=== PATIENT | female | born 1975 | race Two or more races ===

== ENCOUNTER → 2019-07-24 | Outpatient (CLI) | payer OTHER ==
[2019-07-24 13:58] LABS: BASO # 0.1 x10^3/uL (0.0-0.2); BASO % 1 % (0-3); BILIRUBIN,URINE NEGATIVE (NEG); CLARITY,URINE CLEAR; COLOR,URINE YELLOW; EOS # 0.1 x10^3/uL (0.0-0.7); EOS % 2 % (0-3); HEMATOCRIT 38.4 % (36.0-47.0); HEMOGLOBIN 12.8 g/dL (12.0-15.5); LYMPH # 1.8 x10^3/uL (1.0-4.8); LYMPH % 24 % (24-48); MEAN CORPUSCULAR HEMOGLOBIN 28 pg (25-35); MEAN CORPUSCULAR HGB CONC 33 g/dL (31-37); MEAN CORPUSCULAR VOLUME 85 fL (79-100); MONO # 0.7 x10^3/uL (0.0-1.1); MONO % 9 % (0-9); NEUT # 4.7 x10^3/uL (1.8-7.7); NEUT % 64 % (31-73); NITRITE,URINE NEGATIVE (NEG); PH,URINE 6.5; PLATELET COUNT 255 x10^3/uL (140-400); PROTEIN,URINE NEGATIVE (NEG-TRACE); RED BLOOD COUNT 4.51 x10^6/uL (3.50-5.40); RED CELL DISTRIBUTION WIDTH 14.6 % (11.5-14.5); UROBILINOGEN,URINE 0.2 mg/dL (0.2 mg/dL); WHITE BLOOD COUNT 7.3 x10^3/uL (4.0-11.0)
[2019-07-24 14:11] LABS: BACTERIA,URINE FEW /HPF (0-FEW); RBC,URINE 0 /HPF (0-2); SQUAMOUS EPITHELIAL CELL,UR MOD /LPF; WBC,URINE RARE /HPF (0-4)
[2019-07-24 14:21] LABS: ALBUMIN 3.7 g/dL (3.4-5.0); CALCIUM 8.8 mg/dL (8.5-10.1); CREATININE 0.8 mg/dL (0.6-1.0); GFR 77.2; POTASSIUM 4.1 mmol/L (3.5-5.1); TOTAL BILIRUBIN 0.3 mg/dL (0.2-1.0); TOTAL PROTEIN 7.3 g/dL (6.4-8.2)
--- NOTE | 2019-07-27 07:30 | NUR ---
Surgery pretesting lab results faxed to Dr. Anderson's office, confirmation received.
== END | disposition home or self-care (01) ==
LOC: SURGPAT 13:01
PROVIDERS: ATTEND Obstetrics & Gynecology
DX: Z01.818 Encounter for other preprocedural examination (principal); Z88.5 Allergy status to narcotic agent
CPT/HCPCS: 36415; 80053; 81001; 85025; 87086

== ENCOUNTER 2019-08-05 06:06 | Observation (INO) | payer OTHER ==
[~2019-08-05] VITALS: Ht 160 cm; Wt 62.0 kg
[2019-08-05] VITALS (10 sets, daily range): BP systolic 89–105; BP diastolic 48–63
[~2019-08-05 06:06] MED LIST: ceFAZolin SODIUM IV Push 1 GM VIAL. IVP ONE
[2019-08-05] MEDS ORDERED: PROPOFOL 20 ML IV ONE (06:47)
[2019-08-05] MEDS ORDERED: DEXAMETHASONE SOD PHOS 4 MG/ML VIAL ONE (06:47)
[2019-08-05] MEDS ORDERED: fentaNYL PF VIAL 100 MCG/2 ML VIAL ONE ×3 (06:47→09:28)
[2019-08-05] MEDS ORDERED: LIDOCAINE 2% PF 5 ML VIAL. ONE (06:47)
[2019-08-05] MEDS ORDERED: ROCURONIUM 50 MG/5 ML VIAL. ONE (06:47)
[2019-08-05] MEDS ORDERED: ONDANSETRON PF 4 MG/2 ML VIAL. ONE (06:47)
[2019-08-05] MEDS ORDERED: ESTROGENS, CONJ VAGINAL CREAM 30GM TUBE. ONE (07:00)
[2019-08-05] MEDS ORDERED: INDIGOTINDISULFONATE SODIUM 40 MG/5 ML AMPUL. ONE (07:00)
[2019-08-05] MEDS ORDERED: PROCHLORPERAZINE 10 MG/2 ML VIAL. IV PRN (07:00)
[2019-08-05] MEDS ORDERED: fentaNYL PF VIAL 100 MCG/2 ML VIAL IV PRN ×2 (07:00)
[2019-08-05] MEDS ORDERED: IV RINGERS,LACTATED 1000ML 1,000 ML IV SCH (07:00)
[2019-08-05] MEDS ORDERED: BUPIVACAINE-EPI 0.25%-1:200000 MPF 30 ML VIAL. ONE (07:00)
[2019-08-05] MEDS ORDERED: ONDANSETRON PF 4 MG/2 ML VIAL. IV PRN ×2 (07:00→09:45)
[2019-08-05] MEDS ORDERED: MIDAZOLAM HCL/PF 2 MG/2 ML VIAL. ONE (07:28)
[2019-08-05] MEDS ORDERED: KETOROLAC 30 MG/ML VIAL. ONE (08:40)
[2019-08-05] MEDS ORDERED: SEVOFLURANE 61 TO 120 MINUTES. IH ONE (08:40)
[2019-08-05] MEDS ORDERED: NEOSTIGMINE METHYLSULFATE 5 MG/5 ML SYRINGE. ONE (08:44)
[2019-08-05] MEDS ORDERED: GLYCOPYRROLATE 1 MG/5 ML VIAL. ONE (08:44)
[2019-08-05] MEDS ORDERED: PROCHLORPERAZINE 10 MG/2 ML VIAL. ONE (09:28)
--- NOTE | 2019-08-05 09:31 | PDOC ---
BRIEF OPERATIVE NOTE Date: Aug 05, 2019 Pre-Op Diagnosis pelvic pain, endometriosis, dysmenorrhea Post-Op Diagnosis same Procedure Performed LAVH/BSO Surgeon Dr. Anderson Multiple Drum Sander Helper ZAKIA Warren Anesthesiologist Dr. Garza Anesthesia Type: General Blood Loss 50cc IV Fluid 1L Urine Output 100cc clear via hadley Specimens Obtained cervix, uterus, bilateral tubes and ovaries Findings enlarged RV uterus, endometriosis on L US ligament and post uterus, evidence of prior tubal ligation, normal bilateral ovaries mild adhesive disease RUQ (not touched) Complications none Operative Note [id number] PAUL ANDERSON MD Aug 05, 2019 09:31
[2019-08-05] MEDS ORDERED: 0.9 % SODIUM CHLORIDE 10 ML DISP.SYRIN. IV PRN (09:45)
[2019-08-05] MEDS ORDERED: SIMETHICONE 80 MG TAB.CHEW PO PRN (09:45)
[2019-08-05] MEDS ORDERED: CALCIUM CARBONATE 500 MG TAB.CHEW PO PRN (09:45)
[2019-08-05] MEDS ORDERED: ZOLPIDEM 5 MG TABLET. PO PRN (09:45)
[2019-08-05] MEDS ORDERED: LACTULOSE 20 GM/30 ML SOLUTION. PO PRN (09:45)
[2019-08-05] MEDS ORDERED: ESTRADIOL WEEKLY 0.1 MG PATCH. TD SCH (09:45)
[2019-08-05] MEDS ORDERED: MAG HYDROX/ALUMINUM HYD/SIMETH 30 ML ORAL.SUSP PO PRN (09:45)
[2019-08-05] MEDS ORDERED: diphenhydrAMINE HCL 25 MG CAPSULE PO PRN (09:45)
[2019-08-05] MEDS ORDERED: MAGNESIUM HYDROXIDE 2,400 MG/30 ML ORAL.SUSP. PO PRN (09:45)
[2019-08-05] MEDS ORDERED: NALOXONE 0.4 MG/ML VIAL. IV PRN (09:45)
[2019-08-05] MEDS ORDERED: diphenhydrAMINE 50 MG/ML VIAL IV PRN (09:45)
--- NOTE | 2019-08-05 13:32 | OP ---
DATE OF SURGERY: 08/05/2019 PREOPERATIVE DIAGNOSES: Known endometriosis by prior laparoscopy when she had a tubal ligation, pelvic pain and dysmenorrhea. POSTOPERATIVE DIAGNOSES: Known endometriosis by prior laparoscopy when she had a tubal ligation, pelvic pain and dysmenorrhea. PROCEDURE: Laparoscopic-assisted vaginal hysterectomy, bilateral salpingo-oophorectomy. SURGEON: Paul Anderson MD FUGITIVE INVESTIGATOR: ZAKIA Bond ANESTHESIOLOGIST: Jerrell Garza MD ANESTHESIA: General. ESTIMATED BLOOD LOSS: 50 mL. URINE OUTPUT: 100 mL clear via Michele catheter. IV FLUIDS: 1 L of Crystalloid. SPECIMENS: Cervix, uterus, bilateral tubes and ovaries. FINDINGS: Enlarged retroverted uterus, endometriosis on the left uterosacral ligament and posterior uterus, evidence of prior tubal ligation, normal bilateral ovaries and mild adhesive disease in the right upper quadrant that was not touched, but no significant pelvic adhesive disease. COMPLICATIONS: None. DESCRIPTION OF PROCEDURE: This patient was taken to the operating room where general anesthesia was placed. The patient was placed in a dorsal lithotomy position in [facility]. She was put to sleep with general anesthesia by Anesthesia. She was prepped and draped in the normal sterile fashion and a Michele catheter had been inserted under sterile technique. Upon my arrival, a timeout was performed. Once everyone agreed, a bivalve speculum was placed in the patient's vagina. A single-tooth tenaculum was used to grasp the anterior lip of the cervix. A 10 mL of 0.25% Marcaine with epinephrine was used to circumferentially inject around the cervix for both hemodissection and hemostatic purposes later. The Valtchev uterine manipulator was placed through the endocervical os, locked on the single tooth tenaculum and the bivalve speculum was then removed. Top gloves were discarded and changed. Attention was then turned to the abdomen where a small infraumbilical skin incision was made with the scalpel over the existing scar. A curved Jess was used to dissect through the subcuticular layer to the fascia. The 5 mm Visiport was used to directly enter the abdominal cavity. Opening patient pressure was 3 mmHg. Carbon dioxide gas was used to then appropriately insufflate the abdominal cavity to maintain a pressure of 15 mmHg. The patient was placed in Trendelenburg position. Left lower quadrant port was placed after transilluminating the abdominal cavity, finding an area clear of any vasculature, making a small incision with the scalpel and placing the trocar in under direct visualization without difficulty. A 4-5 mL of air was placed in the trocar cuff. The camera was then moved laterally to look at the umbilical port. Once it was clear and in, easily seen, it was also insufflated with 4-5 mL of air in the trocar cuff and then the right lower quadrant port was placed under direct visualization after transilluminating the abdominal wall, finding an area clear of any vasculature, making sure the inside was clear of any adhesions making a small incision and placing it in under direct visualization. It was also inflated with 4-5 mL of air, the trocar cuff. Once this was done, she was in Trendelenburg with all the above findings. The left tube and ovary were elevated. We could see the ureter coursing well in the pelvis peristalsing easily. It was a very prominent. We went high on the ovary well above the level of the ureter, cauterizing and cutting the infundibulopelvic ligament with the LigaSure, going over going through the round ligament as well on this side. This was done on the right side as well, elevating the right tube and ovary, finding the ureter coursing low in the pelvis, watching it peristalse staying high on the IP ligament well above the level of the ureter, cauterizing and cutting with the LigaSure, crossing the right round ligament as well, going back and making the bladder flap sharply pushing the uterus cephalad and then elevating with the [place] and the bladder flap using the monopolar hook on the LigaSure to cauterize and cut that bladder flap sharply and pull it down. Once it was down, the uterine vessels were obtained on the left side and going down and hugging the cervix vertically through the cardinal and broad ligaments to the level of the uterosacral. This was done exactly the same on the right side getting the uterine vessels staying inside that pedicle hugging the cervix and going down to the uterosacral. Once this was done, the uterus was completely free and blanched. All instruments were removed from the abdomen and attention was turned vaginally. The single tooth and Valtchev were removed. A weighted speculum was placed in the patient's vagina. Thyroid Nixon clamps were placed on the anterior and posterior lips of the cervix respectively. A scalpel was used to make a circumferential incision in the cervix. The posterior cul-de-sac was sharply entered easily extended with the Jacques scissors under direct visualization. The posterior cul-de-sac was cleared time-out. A #0 Vicryl stitch was used to secure the posterior peritoneum to the vaginal cuff, was tagged with a curved Jess clamp. The needle was cut and passed off. The short weighted vaginal speculum was removed and replaced with the long weighted Yoli speculum in the posterior cul-de-sac. Once this was done, the end of the plastic anchor was used to gently push up the anterior bladder peritoneum off the cervix and a scalpel was used to gently take this down as well and push it up. I then removed everything, took a 4 x 4 and just gently pushed up and easily entered the anterior cul-de-sac after taking it down sharply. The Ray-Dolores was removed and the curved Phil was easily placed in the anterior cul-de-sac. At this point, curved Ciera clamps x 2 were placed on the patient's left uterosacral ligament where they were doubly clamped with curved Ciera's, cut with curved Jacques scissors and suture ligated x 2 with 0 Vicryl. Second one was taken through the vaginal cuff securing uterosacral ligament to the vaginal cuff, cutting and tagging or once it was tied cutting the needle off and tagging it with a straight Jess clamp and putting it on the outside of the weighted speculum. This was done exactly the same on the patient's right side, double clamping the uterosacrals with curved Ciera's, cutting with curved Jacques scissors, suture ligating x 2 with 0 Vicryl and taking the second one through the vaginal cuff securing uterosacral ligament to the vaginal cuff, tagging it with a straight Jess clamp and cutting and passing the needle off. The remaining pedicle on both sides was delineated with a mixture, the curved right angle clamp and the vaginal LigaSure was used to cauterize and cut the remaining pedicles. The cervix, uterus, bilateral tubes and ovaries were then delivered in total and passed off for permanent pathology. Once this was done, the anterior bladder peritoneum was grasped with a long Allis. The long Yoli speculum was removed and replaced with the short weighted vaginal speculum. A sponge stick was used to examine all the pedicles. On the patient's left side, there was some kind of raw tissue at the uterosacral, so I went ahead and cauterized again, like kind of pulled it out with the pickups and behind it and cauterized with the vaginal LigaSure just to make sure it was hemostatic and it was. There was some slight rundown, but nothing was welling up at all and it looked good, so at this point, 2-0 Vicryl was taken through the anterior bladder peritoneum, left uterosacral ligament, posterior peritoneum and right uterosacral ligament, thus closing the peritoneum in a pursestring like fashion. Once this was done, the right and left uterosacral tags were clipped as well and passed off. The cuff was closed in an anterior to posterior running locked fashion and tied to the posterior cuff tag. Once this was done, the cuff was reexamined. It was completely hemostatic and looked good, so all instruments were removed from the vagina. All sponge, lap and needle counts were correct x 2 by OR personnel before going above. Once this was assured, all gloves were discarded and changed. Attention was then turned back above for a second look where we copiously irrigated. There was absolutely no bleeding seen. The right and left pericolic gutters were clear. There was a weird, like white, it looked almost like a stone seen in the left kind of pericolic gutter that was falling down into the pelvis. This was removed laparoscopically and sent off as a separate specimen, so it looked like a little white stone that was removed laparoscopically from the abdominal cavity and that was actually done at the beginning upon initial entry. We found upon initial entry when she was going in Trendelenburg this kind of white looking stones, so I did remove that laparoscopically and did it even before the hysterectomy but it is passed off for permanent pathology. Once irrigation revealed hemostasis, Tisseel was placed over all the pedicles. Then, the gas was taken out of trocar cuffs. The right and left lower quadrant ports were removed under direct visualization. They were hemostatic. The remainder of the gas was released through the umbilical port and it was removed as well. All three port sites were closed with 4-0 nylon at the skin and injected with local. The patient is currently being awakened from anesthesia. PAUL ANDERSON MD DR: BRETT/aline JOB#: [id number] / [id number]
[2019-08-05] MEDS: HYDROcodone/APAP 5/325MG 1 TAB TABLET PO PRN ×2 (14:15→19:57)
[2019-08-06 00:07] VITALS: BP 83/41
[2019-08-06] MEDS: HYDROcodone/APAP 5/325MG 1 TAB TABLET PO PRN ×3 (02:05→10:14)
[2019-08-06 03:53] VITALS: BP 92/45
[2019-08-06 04:15] LABS: CALCIUM 7.5 mg/dL (8.5-10.1); CREATININE 0.7 mg/dL (0.6-1.0); GFR 90.1; POTASSIUM 4.4 mmol/L (3.5-5.1)
[2019-08-06 08:00] VITALS: BP 112/49
--- NOTE | 2019-08-06 12:03 | PDOC ---
SURGICAL PROGRESS NOTE Subjective Doing well without complaints. Scant VB with urinating. Ambulating well. Voiding well without catheter. Tolerating PO without N/v. Wants to go home Vital Signs Vital Signs Date Time Temp Pulse Resp B/P (MAP) Pulse Ox O2 Delivery O2 Flow Rate FiO2 08/06/19 11:18 18 Room Air 08/06/19 08:00 98.4 62 112/49 (70) 99 98.4 08/05/19 09:34 10 I&O Intake and Output 08/06/19 07:00 Intake Total 2580 ml Output Total 760 ml Balance 1820 ml Intake Oral 1230 ml IV Total 1350 ml Output Urine Total 710 ml Estimated Blood Loss 50 ml # Voids 1 PATIENT HAS A NGUYEN: No General: Alert, Oriented X3, Cooperative, No acute distress HEENT: Atraumatic Heart: Regular rate Abdomen: Soft, No tenderness, No masses, Other (all port sites c/d/i with bandaids) Extremities: No clubbing, No cyanosis, No edema, No tenderness/swelling, Other (neg homans bilaterally) Skin: No rashes, No breakdown Neuro: Normal speech Psych/Mental Status: Mental status NL, Mood NL Labs Laboratory Tests Test 08/05/19 06:45 08/06/19 03:40 Bedside Urine HCG, Qualitative Hcg negative (Negative) Hematocrit 30.8 % (36.0-47.0) Sodium Level 141 mmol/L (136-145) Potassium Level 4.4 mmol/L (3.5-5.1) Chloride Level 110 mmol/L (98-107) Carbon Dioxide Level 27 mmol/L (21-32) Anion Gap 4 (6-14) Blood Urea Nitrogen 9 mg/dL (7-20) Creatinine 0.7 mg/dL (0.6-1.0) Estimated GFR (Cockcroft-Gault) 90.1 Glucose Level 108 mg/dL (70-99) Calcium Level 7.5 mg/dL (8.5-10.1) Laboratory Tests Test 08/06/19 03:40 Hematocrit 30.8 % (36.0-47.0) Sodium Level 141 mmol/L (136-145) Potassium Level 4.4 mmol/L (3.5-5.1) Chloride Level 110 mmol/L (98-107) Carbon Dioxide Level 27 mmol/L (21-32) Anion Gap 4 (6-14) Blood Urea Nitrogen 9 mg/dL (7-20) Creatinine 0.7 mg/dL (0.6-1.0) Estimated GFR (Cockcroft-Gault) 90.1 Glucose Level 108 mg/dL (70-99) Calcium Level 7.5 mg/dL (8.5-10.1) I have reviewed the following labs, vitals, nursing Cardiovascular: No pertinent hx Pulmonary: No pertinent hx GI: No pertinent hx Heme/Onc: No pertinent hx Psych: No pertinent hx Infectious disease: No pertinent hx ENT: No pertinent hx Renal/: No pertinent hx Endocrine: No pertinent hx Dermatology: No pertinent hx Assessment/Plan POD#1 s/p LAVH/BSO Routine PO care d/c to home later today NPV x 6 weeks Light/limited activity x 2 weeks keep scheduled follow up with me in one week NO driving while on narcotic pain meds already has hydrocodone filled at home Call or return sooner for any other questions not limited to but including pain unrelieved with pain meds, increased or unexplained vaginal bleeding or T>100.4 PAUL ORTIZ MD Aug 06, 2019 12:03
--- NOTE | 2019-08-06 12:06 | PDOC3 ---
Discharge Summary Visit Information Date of Admission: Aug 05, 2019 Date of Discharge: Aug 06, 2019 Final Diagnosis Pelvic pain and endometriosis Brief Hospital Course Allergies Allergies Coded Allergies Type Severity Reaction Last Updated Verified morphine Allergy Intermediate Hives 08/05/19 Yes Vital Signs Vital Signs Date Time Temp Pulse Resp B/P (MAP) Pulse Ox O2 Delivery O2 Flow Rate FiO2 08/06/19 11:18 18 Room Air 08/06/19 08:00 98.4 62 112/49 (70) 99 98.4 08/05/19 09:34 10 Lab Results Laboratory Tests Test 08/05/19 06:45 08/06/19 03:40 Bedside Urine HCG, Qualitative Hcg negative (Negative) Hematocrit 30.8 % (36.0-47.0) Sodium Level 141 mmol/L (136-145) Potassium Level 4.4 mmol/L (3.5-5.1) Chloride Level 110 mmol/L (98-107) Carbon Dioxide Level 27 mmol/L (21-32) Anion Gap 4 (6-14) Blood Urea Nitrogen 9 mg/dL (7-20) Creatinine 0.7 mg/dL (0.6-1.0) Estimated GFR (Cockcroft-Gault) 90.1 Glucose Level 108 mg/dL (70-99) Calcium Level 7.5 mg/dL (8.5-10.1) Laboratory Tests Test 08/06/19 03:40 Hematocrit 30.8 % (36.0-47.0) Sodium Level 141 mmol/L (136-145) Potassium Level 4.4 mmol/L (3.5-5.1) Chloride Level 110 mmol/L (98-107) Carbon Dioxide Level 27 mmol/L (21-32) Anion Gap 4 (6-14) Blood Urea Nitrogen 9 mg/dL (7-20) Creatinine 0.7 mg/dL (0.6-1.0) Estimated GFR (Cockcroft-Gault) 90.1 Glucose Level 108 mg/dL (70-99) Calcium Level 7.5 mg/dL (8.5-10.1) Brief Hospital Course Ms. Interiano is a 44 old female who presented with pelvic pain, dysmenorrhea and known endometriosis. She underwent and LAVH/BSO without complications. She has had an unremarkable postoperative course. She is voiding well without complications, ambulating well, tolerating PO and wanting to go home Assessment Assessment POD#1 s/p LAVH/BSO Routine PO care d/c to home later today NPV x 6 weeks Light/limited activity x 2 weeks keep scheduled follow up with me in one week NO driving while on narcotic pain meds already has hydrocodone filled at home Call or return sooner for any other questions not limited to but including pain unrelieved with pain meds, increased or unexplained vaginal bleeding or T>100.4 Discharge Information Condition at Discharge: Stable Follow Up: Weeks Disposition/Orders: D/C to Home Scheduled Info (No Known Medications Prior To Admisstion) Each, 1 EACH MC 1X for no home meds will stop any p, (Reported) Entered as Reported by: MAYITO CRUZ on 07/24/19 1322 Last Action: Reviewed on 08/05/19 06 by RAINER RODRIGUEZ Patient Instructions Patient Instructions POD#1 s/p LAVH/BSO Routine PO care d/c to home later today NPV x 6 weeks Light/limited activity x 2 weeks keep scheduled follow up with me in one week NO driving while on narcotic pain meds already has hydrocodone filled at home Call or return sooner for any other questions not limited to but including pain unrelieved with pain meds, increased or unexplained vaginal bleeding or T>100.4 Hemodynamically unstable?: No Hemodynamically unstable?: No Operative site or wounds?: Yes Persistent Pain & Nausea?: No PAUL ORTIZ MD Aug 06, 2019 12:05
[2019-08-06 13:05] VITALS: BP 108/67
--- NOTE | 2019-08-06 13:25 | NUR ---
Discharge Note: HEIDY SORIA Discharge instructions and discharge home medications reviewed with Patient and a copy given. All questions have been answered and understanding verbalized. Pt. escorted to vehicle by RN with Pt.'s and belongings present. Pt discharged home. Elisa Vega RN
--- NOTE | 2019-08-07 17:06 | PATHOLOGY ---
[facility] Accession Number: [id number] . 01 Material submitted: . PART A: abdomen - INTRA ABDOMINAL STONE PART B: uterus - UTERUS, CERVIX, BILATERAL TUBES AND OVARIES. Modifiers: bilateral . 01 Clinical history: . Pelvic pain, endometriosis, menorrhagia, dysmenorrhea . 02 Diagnosis: A. Calculus, clinically intra-abdominal (Gross only). . B. Uterus and attached bilateral fallopian tubes and ovaries, laparoscopic assisted vaginal hysterectomy with bilateral salpingo-oophorectomy: - Mild chronic cervicitis with focal squamous metaplasia. - Linear stenotic endometrial cavity with focal residual atrophic endometrium and focal subbasal myometrial necrosis and scarring, suggestive of previous ablation. - Adenomyosis, uterine corpus, focal. - Intramural leiomyoma, uterine corpus. - Status post bilateral tubal ligation, with congestion of fallopian tube remnants. - Hemorrhagic corpus luteum cyst and cystic follicles of left ovary. - Cystic follicles of right ovary. LBQ 08/07/2019 1652 Local . 02 Comment: There is no atypia or evidence of malignancy. (JPM/db; 08/07/2019) . 02 Electronically signed: . French Cisneros MD, Pathologist NPI- [id number] . 01 Gross description: . A. The specimen is received in formalin, labeled "Dona Jaydon, intra-abdominal stone". Received is a possible yellow-guerrier stone measuring 0.4 cm in maximum dimensions. Gross photographs are taken. Sections are not submitted. . B. The specimen is received in formalin labeled "Dona Jaydon, uterus, cervix, bilateral tubes and ovaries". Received is a 130 g, 9.3 x 6.1 x 5.0 cm uterus with attached cervix and attached adnexa, weighing 11 and 10 g, left and right, respectively. The uterine serosa is pale guerrier to arbaham-guerrier and smooth in appearance. The 0.9 cm cervical os is surrounded by pale guerrier, smooth ectocervical mucosa. The uterus is oriented using the peritoneal reflection and the anterior paracervical margin is inked black. The uterus is opened laterally to reveal a pale guerrier, corrugated endocervical canal measuring 2.7 cm in length. The endometrial cavity is linear and stenotic in appearance measuring 3.5 cm in length by 0.5 cm in width. The endometrium is pink-guerrier, scarred in appearance and measures less than 0.1 cm in thickness. Serial sectioning reveals a pale guerrier, trabeculated myometrium measuring up to 2.5 cm in thickness and a single intramural fibroid measuring 0.4 cm, as well as a cystic structure measuring 0.5 cm. . The left adnexa consists of a fimbriated fallopian tube measuring 2.2 cm in length by up to 0.5 cm in diameter attached to a 3.2 x 2.6 x 2.1 cm ovary. The serosal surface of the fallopian tube is purple-abraham and smooth in appearance. Sectioning through the fallopian tube reveals a patent lumen and the fallopian tube appears grossly unremarkable. The ovarian surface is yellow-guerrier to pink-abraham and slightly irregular in contour. Sectioning through the ovary reveals multiple cystic structures ranging in size from 0.4 to 0.6 cm filled with blood-tinged fluid. The remaining cut surfaces display pale guerrier, normal ovarian stroma. . The right adnexa consists of a fimbriated fallopian tube measuring 2.0 cm in length by up to 0.5 cm in diameter attached to a 3.5 x 1.8 x 1.6 cm ovary. The serosal surface of the fallopian tube is purple-abraham and smooth in appearance. Sectioning through the fallopian tube reveals a patent lumen and the fallopian tube appears grossly unremarkable. The ovarian surface is pale guerrier to yellow-guerrier and slightly irregular in contour. Sectioning through the ovary reveals several cystic structures ranging in size from 0.4 to 0.5 cm filled with blood-tinged fluid. The remaining cut surfaces display pale guerrier, normal ovarian stroma. The specimen is submitted representatively as follows: . B1 12:00 cervix B2 6:00 cervix B3 anterior endomyometrium B4 posterior endomyometrium B5 intramural fibroid and cystic structure B6-B7 left adnexa B8-B9 right adnexa. (CAA; 08/06/2019) QAC/QAC 08/06/2019 1516 Local . 02 Pathologist provided ICD-10: N72, N87.9, N85.8, N80.8, D25.1, N83.12, N83.02, N83.01 . 02 CPT . 804256, [id number] Specimen Comment: A courtesy copy of this report has been sent to [phone] Specimen Comment: Report sent to Performed at: 01 [facility] [address], [place] [id number] MD Hossein Maurice MD Phone: [phone] Performed at: 02 [facility] [address] [place], [place] [id number] MD French Cisneros MD Phone: [phone]
== END 2019-08-06 13:25 | disposition home or self-care (01) ==
LOC: SURG 06:06 → EDUNIT# 07:30 → 3 NORTH 10:21
PROVIDERS: ADMIT Obstetrics & Gynecology; ATTEND Obstetrics & Gynecology
DX: N80.9 Endometriosis, unspecified (principal); R10.9 Unspecified abdominal pain; N94.6 Dysmenorrhea, unspecified
CPT/HCPCS: 36415; 58552; 80048; 81025; 85014; 86850; 86900; 86901; A7015; G0378; G0379; J0690; J0780; J1100; J1885; J2001; J2250; J2405; J2704; J2710; J3010; J3490; J7030; J7120